=== PATIENT | female | born 1950 | race Caucasian/White ===

== ENCOUNTER → 2020-11-18 | Outpatient (CLI) | payer MEDICARE ==
[~2020-11-18] MED LIST: B-6 PO; CYCLOBENZAPRINE10 MG PO; D3 PO; ELIQUIS5 MG PO; FAMOTIDINE40 MG PO; FOSAMAX70 MG PO; FUROSEMIDE20 MG PO; GABAPENTIN100 MG PO; KEFLEX CAP 500500 MG PO; LASIX20 MG PO; METOPROLOL TART50 MG PO; OXYCODONE HCL5 MG PO; SPIRONOLACTONE100 MG PO; SPIRONOLACTONE25 MG PO; SYMBICORT 16010.2 GM INH; ZETIA10 MG PO
== END ==
LOC: LAB 14:56
PROVIDERS: Internal Medicine Gastroenterology
DX: K74.60 Unspecified cirrhosis of liver (principal)
CPT/HCPCS: 36415; 80048

== ENCOUNTER → 2020-12-01 | Outpatient (CLI) | payer MEDICARE | LOC: HEART 5 10:18 | DX: J44.9 Chronic obstructive pulmonary disease, unspecified (principal); R94.2 Abnormal results of pulmonary function studies; F17.210 Nicotine dependence, cigarettes, uncomplicated | CPT/HCPCS: 94060; 94729 ==

== ENCOUNTER → 2021-04-02 | Outpatient (CLI) | payer MEDICARE | LOC: KOH-I 12:58 | DX: R91.8 Other nonspecific abnormal finding of lung field (principal); K74.60 Unspecified cirrhosis of liver; R16.1 Splenomegaly, not elsewhere classified | CPT/HCPCS: 71250 ==

== ENCOUNTER → 2021-04-02 | Outpatient (CLI) | payer MEDICARE ==
[2021-04-02 15:39] LABS: BUN/CREATININE RATIO 12 (0-10)
== END ==
LOC: LAB 13:49
PROVIDERS: Internal Medicine Gastroenterology
DX: K74.60 Unspecified cirrhosis of liver (principal)
CPT/HCPCS: 80048

== ENCOUNTER → 2021-08-03 | Outpatient (CLI) | payer MEDICARE ==
[2021-08-03 14:09] LABS: BUN/CREATININE RATIO 22 (0-10)
== END ==
LOC: LAB 12:35
PROVIDERS: Internal Medicine Gastroenterology
DX: K74.60 Unspecified cirrhosis of liver (principal)
CPT/HCPCS: 36415; 80048

== ENCOUNTER → 2021-08-31 | Outpatient (CLI) | payer MEDICARE | LOC: EXRD 08-17 10:00 | DX: K74.60 Unspecified cirrhosis of liver (principal); R94.5 Abnormal results of liver function studies; Z90.49 Acquired absence of other specified parts of digestive tract; K76.0 Fatty (change of) liver, not elsewhere classified | CPT/HCPCS: 76705 ==

== ENCOUNTER → 2021-09-09 | Outpatient (CLI) | payer MEDICARE | LOC: MAMO 14:30 | DX: Z12.31 Encounter for screening mammogram for malignant neoplasm of breast (principal) | CPT/HCPCS: 77063; 77067 ==

== ENCOUNTER → 2022-04-05 | Outpatient (CLI) | payer MEDICARE | LOC: KOH-I 13:00 | DX: F17.210 Nicotine dependence, cigarettes, uncomplicated (principal); R91.8 Other nonspecific abnormal finding of lung field | CPT/HCPCS: 71271 ==

== ENCOUNTER → 2022-06-14 | Outpatient (CLI) | payer MEDICARE | LOC: HEART 5 08:19 | DX: I48.91 Unspecified atrial fibrillation (principal); R06.02 Shortness of breath; I27.20 Pulmonary hypertension, unspecified; I07.1 Rheumatic tricuspid insufficiency | CPT/HCPCS: 93306 ==

== ENCOUNTER → 2022-06-23 | Outpatient (CLI) | payer MEDICARE ==
[2022-06-23 15:56] LABS: BUN/CREATININE RATIO 25 (0-10)
== END ==
LOC: CT 14:36
PROVIDERS: Internal Medicine Cardiovascular Disease
DX: R93.1 Abnormal findings on diagnostic imaging of heart and coronary circulation (principal); I48.91 Unspecified atrial fibrillation; I10 Essential (primary) hypertension; E78.5 Hyperlipidemia, unspecified; R06.02 Shortness of breath; J43.9 Emphysema, unspecified; K74.60 Unspecified cirrhosis of liver; K76.6 Portal hypertension
CPT/HCPCS: 36415; 71260; 80048; Q9967